=== PATIENT | female | born 1995 | race Caucasian/White ===

== ENCOUNTER 2019-07-27 00:39 | Emergency (ER) | payer OTHER ==
[2019-07-27 01:11] LABS: ABS Eosinophils 0.2 10^3/ul (0-0.6); ABS Lymphocytes 1.6 10^3/ul (1.0-4.8); ABS Monocytes 0.5 10^3/ul (0-0.8); ABS Neutrophils 3.8 10^3/ul (1.5-7.7); Eosinophil % 3.1 %; Hematocrit 40 % (35-47); Hemoglobin 14.1 g/dL (12.0-16.0); Lymphocyte % 26.5 %; Mean Corpuscular HGB Conc 35 g/dL (31-36); Mean Corpuscular Hemoglobin 31 pg (27-31); Mean Corpuscular Volume 90 fL (80-97); Platelet Count 308 10^3/uL (150-450); Red Cell Distribution Width 14 % (10-15); White Blood Count 6.2 10^3/uL (3.5-10.8)
[2019-07-27 01:13] LABS: Urine Appearance Clear; Urine Color Straw
[2019-07-27 01:14] LABS: Urine Blood Negative (Negative); Urine Ketones Negative (Negative); Urine Nitrite Negative (Negative); Urine Protein Negative (Negative); Urine Specific Gravity 1.005 (1.010-1.030); Urine Urobilinogen Negative (Negative)
[2019-07-27 01:15] LABS: Urine Bilirubin Negative (Negative); Urine Glucose Negative (Negative)
--- NOTE | 2019-07-27 01:25 | ED ---
Psychiatric Complaint - HPI Summary HPI Summary: This patient is a 24 year old F brought to [facility] by EMS and police by 941 with a chief complaint of SI since tonight . Symptoms aggravated by nothing. Symptoms alleviated by nothing. Pt reports she has been drinking a lot of alcohol by herself when she talked to her mother who called the EMS. Pt denies SI and is feeling better now than when she did at home. Pt states she has been having a rough night and doesnt want to disappoint her [mother]. Police states pt SI, told mother that she was suicidal, and has not been taking her medication. Pt has been picking at chin due to habit. - History Of Current Complaint Time Seen by Provider: 07/27/19 00:41 Hx Obtained From: Patient, Other: - police Onset/Duration: Lasting Hours, Still Present Timing: Constant Aggravating Factor(s): Nothing Alleviating Factor(s): Nothing Has Suicidal: Denies: Thoughts - Allergies/Home Medications Allergies/Adverse Reactions: Allergies Allergy/AdvReac Type Severity Reaction Status Date / Time No Known Allergies Allergy Unverified 09/29/13 15:14 PMH/Surg Hx/FS Hx/Imm Hx - Family History Family History: LEVEL 5 CAVEAT: FHx LIMITED DUE TO PT CONDITION: INTOXICATION - Social History Alcohol Use: Occasionally Substance Use Type: Reports: None Smoking Status (MU): Never Smoked Tobacco Review of Systems Negative: Fever Positive: Other - denies SI, alcohol intoxication All Other Systems Reviewed And Are Negative: Yes Physical Exam - Summary Physical Exam Summary: Appearance: Awake alert women who appears mildly intoxicate but is distraught and tearful Skin: Warm, dry, no obvious rash Eyes: sclera anicteric, no conjunctival pallor ENT: mucous membranes moist, pharynx appears normal Neck: Supple, nontender Respiratory: Clear to auscultation, no signs of respiratory distress Cardiovascular: Normal S1, S2. No murmurs. Normal distal pulses in tibial and radial bilaterally. Abdomen: Soft, nontender, normal active bowel sounds present Musculoskeletal: Normal, Strength/ROM Intact Neurological: Awake and alert, mentation is normal, speech is fluent and appropriate Psychiatric: felt suicidal but does not feel that way now and worried about disappointing her mother, picking behavior on her chin which has led to superficial skin breakdown, no other obvious signs for trauma Triage Information Reviewed: Yes Vital Signs Reviewed: Yes Procedures - Sedation Patient Received Moderate/Deep Sedation with Procedure: No Diagnostics - Laboratory Result Diagrams: 07/27/19 00:57 07/27/19 00:57 Lab Statement: Any lab studies that have been ordered have been reviewed, and results considered in the medical decision making process. Course/Dx - Course Course Of Treatment: This patient is a 24 year old F brought to [facility] by EMS and police by 941 with a chief complaint of SI since tonight . Pt reports she has been drinking a lot of alcohol by herself. Pt denies SI. Police states pt SI, told mother that she was suicidal, drinking some alcohol, and has not been taking her medication. Physical Exam Findings reveals no abnormalities except for Awake alert women who appears mildly intoxicate but is distraught and tearful, felt suicidal but does not feel that way now and worried about disappointing her mother, picking behavior on her chin which has led to superficial skin breakdown, no other obvious signs for trauma. Test results with no significant abnormalities expect for Ur Specific [place] 1.005 L , Serum Alcohol 299 H. Patient is signed out to Dr. Jacobs by Dr. Draper at 0700, pending mental health evaluation and sobriety with dx alcohol intoxication. - Differential Dx/Clinical Impression Provider Diagnosis: Substance use disorder Discharge ED - Sign-Out/Discharge Documenting (check all that apply): Sign-Out Patient Signing out patient TO: Jalil Jacobs Receiving patient FROM: Donnie Draper - Discharge Plan Condition: Stable Disposition: HOME Referrals: Carly Thomas NP [Primary Care Provider] - - Billing Disposition and Condition Condition: STABLE Disposition: Home - Attestation Statements Document Initiated by Scribe: Yes Documenting Scribe: Radha Zimmer Provider For Whom Archana is Documenting (Include Credential): Dr. Donnie Draper MD Scribe Attestation: Raghav, Radha Zimmer, scribed for Dr. Donnie Draper MD on 07/29/19 at 1839. Scribe Documentation Reviewed: Yes Provider Attestation: The documentation as recorded by the marcosibe, Radha Zimmer accurately reflects the service I personally performed and the decisions made by me, Dr. Donnie Draper MD Status of Scribe Document: Viewed
[2019-07-27 01:28] LABS: ALT 14 U/L (7-52); AST 15 U/L (13-39); Albumin 4.4 g/dL (3.2-5.2); Albumin/Globulin Ratio 1.1 (1-3); Alkaline Phosphatase 61 U/L (34-104); Anion Gap 9 mmol/L (2-11); BUN/Creatinine Ratio 13.5 (8-20); Blood Urea Nitrogen 10 mg/dL (6-24); CO2 Carbon Dioxide 24 mmol/L (22-32); Calcium 9.3 mg/dL (8.6-10.3); Chloride 110 mmol/L (101-111); EGFR African American 118.7 (>60); EGFR Non-African American 98.1 (>60); Globulin 3.9 g/dL (2-4); Glucose 88 mg/dL (70-100); Potassium 3.9 mmol/L (3.5-5.0); Sodium 143 mmol/L (135-145); Total Protein 8.3 g/dL (6.4-8.9)
[2019-07-27 01:32] LABS: Urine Benzodiazepine Screen None Detected (None Detect); Urine Opiates Screen None Detected (None Detect)
[2019-07-27 01:36] LABS: HCG Pregnancy < 0.60 mIU/mL
[2019-07-27 01:50] LABS: Acetaminophen < 15 mcg/mL; Alcohol 299 mg/dL (<10); Salicylate < 2.50 mg/dL (<30)
[2019-07-27 02:04] LABS: TSH (Thyroid Stimulating Horm) 3.58 mcIU/mL (0.34-5.60)
--- NOTE | 2019-07-27 08:28 | ED ---
Progress - Progress Note Progress Note: Patient is received as a sign-out from Dr. Draper to Dr. Jacobs at 0700 07/27/19 shift change pending sobriety and mental health evaluation. Re-Evaluation - Re-Evaluation First Eval Re-Evaluation Time: 09:32 Comment: 0932 - Patient had been medically cleared for MHE and is in process of receiving evaluation at this time. Course/Dx - Course Course Of Treatment: Patient is received as a sign-out from Dr. Draper to Dr. Jacobs at 0700 1119 shift change pending sobriety and mental health evaluation. 0932 - Patient had been medically cleared for MHE and is in process of receiving evaluation at this time. 1106 - powder coat painter Debbie states that the patient's case had been reviewed by Dr. Haji. Patient will be discharged to home with out-patient follow up. - Diagnoses Provider Diagnoses: Substance use disorder - Provider Notifications Discussed Care Of Patient With: Yifan Haji Time Discussed With Above Provider: 11:06 Instructed by Provider To: Other - 1106 - powder coat painter Debbie states that the patient's case had been reviewed by Dr. Haji. Patient will be discharged to home with out-patient follow up. Discharge ED - Sign-Out/Discharge Documenting (check all that apply): Patient Departure - discharge - Discharge Plan Condition: Stable Disposition: HOME Referrals: Carly Thomas NP [Primary Care Provider] - - Billing Disposition and Condition Condition: STABLE Disposition: Home - Attestation Statements Document Initiated by Scribe: Yes Documenting Scribe: MARAL CRUZ Provider For Whom Archana is Documenting (Include Credential): MANUEL JACOBS MD Scribe Attestation: MARAL Avilez scribed for MANUEL JACOBS MD on 07/27/19 at 1846. Scribe Documentation Reviewed: Yes Provider Attestation: The documentation as recorded by the MARAL allen accurately reflects the service I personally performed and the decisions made by me, MANUEL JACOBS MD Status of Scribe Document: Viewed
[2019-07-27 13:02] VITALS: BP 125/72
== END 2019-07-27 12:25 | disposition home or self-care (01) ==
LOC: ED 00:39
DX: F10.929 Alcohol use, unspecified with intoxication, unspecified (principal); F19.90 Other psychoactive substance use, unspecified, uncomplicated; Z79.899 Other long term (current) drug therapy
CPT/HCPCS: 36415; 80053; 80307; 80320; 80329; 81003; 84443; 84702; 85025; 99285; G0480